=== PATIENT | male | born 1985 | race Caucasian/White ===

== ENCOUNTER 2017-05-16 13:58 | Emergency (ER) | payer BC, OTHER ==
[~2017-05-16] VITALS: Ht 182.9 cm; Wt 123.0 kg
[2017-05-16 14:10] VITALS: TEMP 36.7; Ht 182.9 cm; Wt 123.0 kg
[2017-05-16] MEDS ORDERED: XYLOCAINE 1%/SOD BICARB 20 ML VIAL INFIL ONE (14:20)
[2017-05-16] MEDS ORDERED: DIPHTHERIA/TETANUS/PERTUSSIS 0.5 ML SYR/VIAL IM. ONE (14:30)
[2017-05-16] MEDS ORDERED: ZNT/150 PO (14:48)
[2017-05-16] MEDS ORDERED: SERT50TA PO (14:48)
[2017-05-16] MEDS ORDERED: ACETAMINOPHEN 500 MG TAB PO ONE (15:00)
[2017-05-16 16:00] VITALS: BP 136/75; PULSE 94; O2SAT 96
--- NOTE | 2017-05-16 20:59 | EMERGENCY ROOM VISIT NOTE ---
ED Visit Note First contact with patient: 14:14 Chief Complaint: I cut my right thumb. History of Present Illness: Mr. Bray is a 32-year-old white male who ambulates into the ED complaining of a right thumb laceration. Patient reports less than 1 hour before he arrived in the emergency department he was scraping off snow/ice from his car. The snow/staff internist office based only was attached to a wooden handle and the handle broke and cut his left thumb. He reports he attempted to control bleeding prior to arrival at the hospital. Additionally he notes that the wound was spurting blood at the time of the injury. Currently patient reports she is not having no associated symptoms with his laceration including pain, thumb weakness/numbness/tingling. He has not taken any medications prior to arrival at the hospital. Review of Systems: As noted above in history of present illness. 8 body systems were reviewed and found to be negative as noted above. Past Medical History: Hypertension. Current Medications: Zoloft, Zantac. Allergies to Medications: Penicillin. Social History: Patient is currently employed; he feels safe in his home environment; he denies tobacco and alcohol use. Tetanus Immunization Status: Patient reports out of date. Physical Examination: Vital Signs: Date Time Temp Pulse Resp B/P (MAP) Pulse Ox O2 Delivery O2 Flow Rate FiO2 05/16/17 16:00 94 18 136/75 96 05/16/17 14:10 36.7 82 20 155/103 96 Room Air GENERAL: 32-year-old male in mild distress due to pain, nontoxic-appearing, afebrile and hemodynamically stable. NEUROLOGICAL: Awake, alert and oriented to person, place and time. Answering questions appropriately and following commands. SKIN: Warm, dry and pink. Right Thumb: Patient has a 5 cm round almost near avulsion laceration over the proximal phalanx. No bleeding. RIGHT THUMB: Soft tissue injury as noted above. No gross bony deformity. Full range of motion against resistance of all movements of the MCP and interphalangeal joints. Throughout the thumb skin was warm and pink and capillary refill is brisk. He was able to distinguish light sensations to all dermatomes. On evaluation of the laceration/near avulsion I do not appreciate any exposure of the tendon tendon, bone or muscle structures. ED Course: Patient is assessed as noted above. Patient's medication list was reviewed. Wound Repair: Complexity: Basic Verbal consent was obtained after the risks and benefits were explained. A digital block was performed using a total of 4.8 cm of buffered 1% lidocaine; approximately three quarters [address] way through his closure he started experiencing sharp pain over the proximal aspect of the wound and was given an additional infiltration of approximately 1.3 cm in the area of his pain. The skin was prepped with betadine and a sterile field set. The wound was explored for foreign bodies and none found. Copious irrigation was performed using sterile saline. With direct pressure the bleeding subsided. Debridement was not performed. The wound edges were approximated using 5-0 Ethilon with 12 simple interrupted sutures. Hemostasis and excellent approximation was achieved. Antibacterial ointment and a sterile dressing applied. No complications and the patient tolerated the procedure well. Patient was placed in a thumb spica splint. Patient was educated about tonight's findings and instructed on his treatment plan; he verbalizes understanding and agreement with this plan. Clinical Impression: Laceration of the right thumb. Disposition: Patient discharged home in stable condition; prior to departure he was reassessed and subjectively reported he was still pain-free. Plan: Comfort measures, wound care, and signs of infection were discussed with the patient. Patient was encouraged to follow-up with PCP or return to the ED for signs of infection and/or suture removal in 10-12 days.
== END 2017-05-16 16:02 | disposition home or self-care (01) ==
LOC: C.EDB 14:02 → C.EDD 16:02
DX: S61.011A Laceration without foreign body of right thumb without damage to nail, initial encounter (principal); W45.8XXA Other foreign body or object entering through skin, initial encounter; Y93.89 Activity, other specified; I10 Essential (primary) hypertension; Z79.899 Other long term (current) drug therapy; Z23 Encounter for immunization

== ENCOUNTER → 2017-07-02 | Outpatient (CLI) | payer BC ==
[~2017-07-02] VITALS: Ht 182.9 cm; Wt 123.3 kg
[~2017-07-02] MED LIST: SERT50TA PO; ZNT/150 PO
[2017-07-02 14:22] VITALS: BP 142/87; PULSE 81; Ht 182.9 cm; Wt 123.3 kg
== END | disposition home or self-care (01) ==
LOC: C.NEUR 13:41
PROVIDERS: ATTEND Internal Medicine Pulmonary Disease
DX: G47.33 Obstructive sleep apnea (adult) (pediatric) (principal); K21.0 Gastro-esophageal reflux disease with esophagitis; E66.9 Obesity, unspecified; R53.83 Other fatigue; J30.9 Allergic rhinitis, unspecified

== ENCOUNTER → 2017-07-29 | Outpatient (CLI) | payer BC ==
--- NOTE | 2017-08-02 08:02 | POLYSOMNOGRAPH REPORT ---
CLINICAL DATA: A 32-year-old male with previous history of obstructive sleep apnea. He had a tonsillectomy and adenoidectomy and lost weight and stopped CPAP use at that time. He has gained weight back and now has recurrent symptoms of sleep apnea. On the evening of 07/29/2017, home sleep apnea test was performed using a [employer] type 3 monitor. RECORDING RESULTS: Total recording time was 9.6 hours. Patient monitoring time and estimated sleep time was 8.3 hours. RESPIRATORY DATA: Very severe sleep apnea was documented. The ADRIAN was 65.2. There were 451 obstructive, 2 mixed, and 3 central apneic episodes. There were 84 hypopneic episodes. The longest respiratory event was 60 seconds. OXIMETRY DATA: Nocturnal hypoxemia was seen. Oxygen jovan was 77%. Mean saturation was 92%. Time below 89% was 76 minutes. HEART RATE DATA: Heart rates ranged from 36-75 beats per minute. SNORING DATA: Snoring was recorded throughout the night. IMPRESSION: Very severe sleep apnea/hypopnea with an ADRIAN of 65.2 and an oxygen jovan was 77%. RECOMMENDATIONS: Patient should be considered for repeat sleep study with CPAP or use of auto CPAP. MTDD
== END | disposition home or self-care (01) ==
LOC: C.NEUR 13:45
PROVIDERS: ATTEND Internal Medicine Pulmonary Disease
DX: J30.9 Allergic rhinitis, unspecified (principal); K21.0 Gastro-esophageal reflux disease with esophagitis; R53.83 Other fatigue; E66.9 Obesity, unspecified; G47.33 Obstructive sleep apnea (adult) (pediatric)

== ENCOUNTER → 2017-08-19 | Outpatient (CLI) | payer BC ==
--- NOTE | 2017-08-20 06:01 | PAP/PSG TECHNICIAN REPORT ---
[facility] Manager Gyn Polysomnogram Report Study name: None Report date: 08/20/2017 Study date: 08/19/2017 Referring Physician: Niko Mims M.D. Name: NED PUGH Interpreting Physician: Niko Mims M.D. Date of : 1985 Manager Gyn: Barbara Iraheta, PSGT. Sex: Male Age: 32 StudyType: PSG Weight: 274 lbs Height: 32 years, Height 6' 0" Neck Circum:18 inches BMI: 37.16 Medications: Protonix 40 mg. Patient History 32 [address] old male presents [facility] for a titration sleep study. Patient has had c-pap in the past, lost weight and had T & A. He has since gained back the weight and symptoms have returned. Ess= 12, Neck = 18 inches. Parameters Monitored NPSG: E1-M2, E2-M1, Fp1-M2, Fp2-M1, F3-M2, F4-M2, F4-M1, C3-M2, C4-M2, C4-M1, O1-M2, O2-M2, O2-M1, T3-M2, T4-M1, P3-M2, P4-M1, CHIN1, CHIN2, HR, EKG, Legs, PFLOW, SNOR, FLOW, CFLOW, Tidal Volume, THOR, ABDO, SpO2, PLTH, CPRESS, ETCO2 Wave, ETCO2, pH Sleep Architecture Sleep Stages Time at Lights Off 9:24:53 PM STAGES Time (min.) TST (%) Time at Lights On 5:21:23 AM Wake 69.0 -- Total Recording Time (TRT) 486.00 min. N1 8.5 2 Total Sleep Period (TSP) 442.0 min. N2 261.5 64 Total Sleep Time (TST) 407.5min. N3 68.5 17 Awake Time 69.0 min. REM 69.0 17 Wake after Sleep Onset 34.5 min. Sleep Efficiency (SE) 86 % Sleep Onset Latency (KRAIG) 34.5 min. Number of Stage 1 Shifts None Awakenings 7 Stage Changes 40 Number of REM periods 3 REM 69.0 17 REM Latency 168.0 min. NREM 338.5 83 Body Position Analysis Supine Right Left Side Prone Vertical Total Sleep Time (min.) 177.3 153.4 89.5 242.93 0.0 0.6 Total Sleep Time (%) 40% 38% 22% 60 0% N/A% Total Sleep Time REM (min.) 36.0 33.0 0.0 None 0.0 0.0 Total Sleep Time NREM (min.) 128.6 120.4 89.5 None 0.0 0.0 Intermittent Wake (min.) 12.7 17.6 38.1 None 0.0 0.6 Total Sleep Period (%) 40% None None None None None Arousals Myoclonus (PLM) * Events Count Index Events Count Index Spontaneous 27 4 Events Awake (PLMW) 0 0.0 Respiratory 2 0.3 Events Asleep w/ Arousal (PLMA) 8 1.2 PLM 8 1 Events Asleep w/o Arousal (PLMS) 103 15.2 Snoring 5 1 Total Asleep 111 16.3 Total 42 6 Total 111 14 Respiratory Analysis * CA OA MA CH H RERA Total Count 2 0 0 0 44 0 46 Index 0.3 0.0 0.0 0 6.5 0 6.8 Mean Duration 16.2 0.0 0.0 0.00 15.1 0.0 15.1 Longest Duration 19.3 0.0 0.0 0.00 0.0 0.0 26.1 Respiratory Event Summary Total Supine ~Supine Right Left Prone REM NREM Apneas Count 2 0 2 2 0 N/A 0 2 Index 0.3 0 0 0.8 0.0 N/A 0 0 Hypopneas (4% Desat) Count 44 4 40 2 38 N/A 0 44 Index 6.5 1.5 10 0.8 25.5 N/A 0.0 7.8 Apneas & All Hypopneas Count 46 4 42 4 38 N/A 0 46 Index 6.8 1 10 2 25 N/A 0.0 8.2 Respiratory Events (Baker Doughnut+All Hyp+RERA) Count 46 4 42 4 38 N/A 0 46 Index 6.8 1 10 1.6 25.5 N/A 0.0 8.2 Respiratory Related Arousal Count 2 4 1 0 1 N/A 0 2 Index 0.3 0 0 0 1 N/A 0 0 Snoring Analysis Supine Right Left Prone REM NREM Total Snore duration 19.6 min Snores count 399 52 350 N/A 14 787 801 Snore mean duration 1.5 Sec Snores index 145 20 235 N/A 12.2 139.5 117.9 TST with snoring (%) 4.8% Desaturation Event Summary: Minimum %SpO2 Event Count Mean/Min/Max Duration(sec.) Desaturation Index % Time In Bed > 90 58 19.0 / 7.0 / 54.8 7.6 96.6 86 - 90 5 12.1 / 10.5 / 14.3 19.4 3.2 81 - 85 0 N/A 0.0 0.2 76 - 80 0 N/A 0.0 0.0 71 - 75 0 N/A 0.0 0.0 66 - 70 0 N/A 0.0 0.0 61 - 65 0 N/A 0.0 0.0 56 - 60 0 N/A 0.0 0.0 51 - 55 0 N/A 0.0 0.0 < 50 0 N/A 0.0 0.0 Total REM NREM Awake <50% 0.0 min. 0.0 min. 0.0 min. 0.0 min. 51 - 60% 0.0 min. 0.0 min. 0.0 min. 0.0 min. 61 - 70% 0.0 min. 0.0 min. 0.0 min. 0.0 min. 71 - 80% 0.0 min. 0.0 min. 0.0 min. 0.0 min. 81 - 90% 16.2 min. 0.4 min. 15.4 min. 0.5 min. 91 - 100% 459.5 min. 68.6 min. 322.6 min. 68.3 min. Average 93 94 93 93 Minimum SpO2 84 89 84 86 Desaturation Event Index 7.4 2.6 9.9 0.0 # Desat. Events below 89% 36 N/A 36 0 Time(%) with Saturation below 89% 1.4 0.0 1.3 0.1 Time(min.) with Saturation below 89% 6.7 0.0 6.3 0.3 Heart Rate Analysis End Tidal CO2 Analysis Min (bpm) Max (bpm) Average (bpm) TSP (mins) % of TSP Awake 61 98 80 Above 55 mmHg 0.0 0.0 NREM 60 88 72 50-55 mmHg 0.0 0.0 REM 59 91 73 45-50 mmHg 407.5 100.0 Overall 59 91 73 40-45 mmHg 0.0 0.0 35-40 mmHg 0.0 0.0 30-35 mmHg 0.0 0.0 Average ETCO2 0.0 Supplemental O2 Values Minimum O2 level: None Value Start Time End Time Manager Gyn Comments PAP Study: slept in the right, left, and supine positions. No cardiac arrhythmia or PLM's noted. No bruxism noted. CPAP was initiated at +4 CMH2O and up-titrated to an optimal level of +11 CMH2O, which nearly eliminated all respiratory events and snoring. A standard Res Med Mirage FX, was used during titration Mr. Pugh awoke to use the restroom zero times during the night. Mr. Pugh stated, I did not sleep as well as I do when I am in my own bed. The final report will be interpreted and signed by a sleep physician. The completed physician report will then be placed in the patient medical record. Therapy Event: Therapy (cm H20) 0 5 6 8 9 10 11 Total Time at Pressure (min.) 5.1 59.9 23.4 59.8 50.4 234.3 43.7 TST at Pressure (min.) 0.0 27.0 23.4 31.3 50.4 232.3 43.2 # Periods 1 1 1 1 1 1 1 Sleep Onset (min.) N/A 29.4 0.0 0.0 0.0 0.0 0.0 REM Onset (min.) N/A N/A N/A N/A N/A 4.0 N/A Sleep Efficiency % 0 45 100 52 100 99 98 Wakefulness (%) 100.0 54.9 0.0 47.7 0.0 0.9 1.1 Wakefulness (min.) 5.1 32.9 0.0 28.5 0.0 2.0 0.5 NREM 1 (%) 0.0 7.5 0.0 3.3 0.0 0.6 1.1 NREM 1 (min.) 0.0 4.5 0.0 2.0 0.0 1.5 0.5 NREM 2 (%) 0.0 37.6 100.0 27.0 52.6 55.6 97.7 NREM 2 (min.) 0.0 22.5 23.4 16.1 26.5 130.3 42.7 NREM 3 (%) 0.0 0.0 0.0 22.0 47.4 13.4 0.0 NREM 3 (min.) 0.0 0.0 0.0 13.1 23.9 31.5 0.0 REM (%) 0.0 0.0 0.0 0.0 0.0 29.4 0.0 REM (min.) 0.0 0.0 0.0 0.0 0.0 69.0 0.0 # Arousals N/A 8 2 4 4 21 3 Arousal Index N/A 17.8 5.1 7.7 4.8 5.4 4.2 # Snore N/A 149 199 51 36 334 32 Snore Index N/A 331.1 511.1 97.9 42.8 86.3 44.5 AHI N/A 8.9 87.3 1.9 2.4 0.3 5.6 AHI Supine N/A N/A N/A 0.0 N/A 0.0 46.6 AHI Non-Supine N/A 8.9 87.3 2.4 2.4 0.8 0.0 NREM AHI N/A 8.9 87.3 1.9 2.4 0.4 5.6 REM AHI N/A N/A N/A N/A N/A 0.0 N/A RDI N/A 8.9 87.3 1.9 2.4 0.3 5.6 # Obstructive N/A 0 0 0 0 0 0 # Central Ap N/A 0 0 1 1 0 0 # Mixed N/A 0 0 0 0 0 0 # Hypopneas N/A 4 34 0 1 1 4 RERAS N/A 0 0 0 0 0 0 Total Respiratory Events N/A 4 34 1 2 1 4 Time Below SpO2 89.00% (min.) 0.0 0.3 4.3 0.1 0.0 0.3 1.2 Mean NREM SpO2 (%) N/A 92 91 94 95 94 92 Mean REM SpO2 (%) N/A N/A N/A N/A N/A 94 N/A Mean Sleep SpO2 (%) N/A 92 91 94 95 94 92 Min NREM SpO2 (%) N/A 88 84 84 90 87 84 Min REM SpO2 (%) N/A N/A N/A N/A N/A 89 N/A Position Supine (min.) 0.0 0.0 0.0 6.5 0.0 152.9 5.2 Position Non-supine (min.) 0.0 27.0 23.4 24.8 50.4 79.4 38.0 LM Index Sleep N/A 53.3 20.5 17.3 10.7 15.8 0.0 LM Index NREM N/A 53.3 20.5 17.3 10.7 15.8 0.0 LM Index REM N/A N/A N/A N/A N/A 15.7 N/A Mean Heart Rate (bpm) N/A 79 75 79 77 71 66 Min Heart Rate (bpm) N/A 70 69 70 64 59 61
--- NOTE | 2017-08-21 18:29 | POLYSOMNOGRAPH REPORT ---
CLINICAL DATA: A 32-year-old male with BMI of 37.2 referred by myself and Dr. Ventura for treatment of GABRIELA with CPAP. He had sleep apnea diagnosed in the past and was on CPAP. He lost weight and had a tonsillectomy and adenoidectomy. However, he has gained his weight back and his symptoms have returned. His [place] sleepiness score is 12/24. SLEEP ARCHITECTURE: Total sleep period was 442 minutes. Total sleep time was 407.5 minutes divided between 338.5 minutes of non-REM sleep and 69 minutes of REM sleep. Sleep latency was delayed at 34.5 minutes. REM latency was delayed at 168 minutes. Sleep efficiency was 86%. Wake after sleep onset was 34.5 minutes. Sleep consisted of stage N1 2%, stage N2 64%, stage N3 17%, and REM 17%. AROUSAL DATA: 42 arousals were recorded for an index of 6 per hour. PLM DATA: 111 limb movements during sleep were noted for an index of 16.3 per hour with arousal index of 1.2 per hour. RESPIRATORY DATA: The AHI was 6.8. There were 2 central apneic episodes. The longest apneic episode was 19.3 seconds. There were 44 hypopneic episodes with a mean duration of 15.1 seconds. OXIMETRY DATA: Mild nocturnal hypoxemia was seen. Oxygen jovan was 84% during non-REM sleep. Mean saturation was 92%. Time below 89% was 6.7 minutes. EKG: Heart rates ranged from 59-91 beats per minute. No arrhythmias were noted. DRAPERY HEAD FORMER'S COMMENTS: The patient slept in the right, left, and supine position. A standard ResMed Mirage FX mask was used. The patient was titrated up to his final pressure setting of 11 cm of water pressure. At this final pressure setting, he slept for 43 minutes with an AHI of just above 5. IMPRESSION: Obstructive sleep apnea/hypopnea corrected with CPAP 11 cm water pressure ResMed Mirage FX mask. RECOMMENDATIONS: The patient should be started on the above-noted treatment regimen and seen back in followup within 90 days to document efficacy and compliance. LENAD
== END | disposition home or self-care (01) ==
LOC: C.NEUR 21:00
PROVIDERS: ATTEND Physician Assistant Medical
DX: G47.33 Obstructive sleep apnea (adult) (pediatric) (principal); E66.9 Obesity, unspecified; Z88.0 Allergy status to penicillin